=== PATIENT | male | born 1975 | race Caucasian/White ===

== ENCOUNTER 2018-06-19 19:00 | Emergency (ER) | payer MEDICAID ==
[~2018-06-19] VITALS: Ht 162.6 cm; Wt 90.7 kg
[2018-06-19 20:24] LABS: Basophils # (auto) 0.1 uL; Basophils % (auto) 0.6 % (0.0-2.0); Eosinophils # (auto) 0.1 uL; Eosinophils % (auto) 1.5 % (0.0-7.0); Hematocrit 45.7 % (41.0-53.0); Hemoglobin 15.3 g/dL (13.5-17.5); Lymphocytes # (auto) 1.8 uL; Lymphocytes % (auto) 19.8 % (10.0-50.0); Mean Corpuscular Hemoglobin 28.3 pg (28.0-32.0); Mean Corpuscular Hgb Conc. 33.6 g/dL (32.0-36.0); Mean Corpuscular Volume 84.2 fL (80.0-100.0); Monocytes # (auto) 0.7 uL; Monocytes % (auto) 7.8 % (0.0-12.0); Neutrophils # (auto) 6.2 uL; Neutrophils % (auto) 70.3 % (37.0-80.0); Platelet Count (auto) 271 10^3/uL (140-450); Red Blood Cells 5.43 10^6/uL (4.5-5.90); Red Cell Distribution Width 13.7 % (11.8-14.3); White Blood Cell 8.9 10^3/uL (4.4-10.8)
[2018-06-19 20:42] LABS: Alanine Aminotransferase 33 U/L (16-61); Anion Gap 5 (5-15); Aspartate Aminotransferase 19 U/L (15-37); Blood Urea Nitrogen 17 mg/dL (7-18); Calcium 9.1 mg/dL (8.5-10.1); Carbon Dioxide 28 mmol/L (21-32); Chloride 108 mmol/L (98-107); Glucose 104 mg/dL (74-106); Magnesium 2.5 mg/dL (1.6-2.6); Potassium 3.6 mmol/L (3.5-5.1); Sodium 141 mmol/L (136-145)
[2018-06-19 20:47] LABS: Alkaline Phosphatase 50 U/L (45-117); BUN/Creatinine Ratio 15.5; Bilirubin, Total 0.2 mg/dL (0.2-1.0); GFR African American 95 mL/min; GFR Non-African American 78 mL/min; Total Protein 7.1 g/dL (6.4-8.2)
[2018-06-20 07:42] VITALS: BP 136/85
[2018-06-20] MEDS ORDERED: KETOROLAC TROMETH 60MG/2ML VIAL IM ONE (07:45)
== END 2018-06-20 08:06 | disposition home or self-care (01) ==
LOC: ER 19:02
DX: R07.89 Other chest pain (principal); R51 Headache; R10.30 Lower abdominal pain, unspecified; Z88.5 Allergy status to narcotic agent; Z88.8 Allergy status to other drugs, medicaments and biological substances
CPT/HCPCS: 36415; 71046; 80053; 83735; 84484; 85025; 93005; 96372; 99284; J1885